=== PATIENT | female | born 1940 | race Caucasian/White ===

== ENCOUNTER 2025-05-09 00:15 | Inpatient (IN) | payer MEDICARE, SELFPAY ==
[2025-05-09 00:36] VITALS: BMI 22.4
[2025-05-09 00:38] VITALS: BP 161/86; PULSE 88; RESP 16; TEMP 36.6; O2SAT 92
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
[2025-05-09 08:00] VITALS: BP 158/107; PULSE 83; RESP 16; TEMP 36.4
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
[2025-05-09 20:00] VITALS: BP 100/60; PULSE 66; RESP 16; TEMP 36.4; O2SAT 94
[2025-05-10 07:34] LABS: Hemoglobin A1C 155.2340 umol/L; Total Hemoglobin (HGBA1C) 3609.6069 umol/L
[2025-05-10 07:43] LABS: Alanine Aminotransferase 13 U/L (0-31); Albumin Level 3.8 g/dL (3.5-5.0); Alkaline Phosphatase 72 U/L (39-117); Anion Gap 11 (12-20); Aspartate Amino Transferase 22 U/L (5-31); Blood Urea Nitrogen 21 mg/dL (9-16); Calcium 8.9 mg/dL (8.4-10.2); Carbon Dioxide 28 mmol/L (22-29); Chloride 108 mmol/L (96-108); Cholesterol 162 mg/dL (<200); Creatinine Clr Calc Pharmacy 61.6; Estimated Glomerular Filt Rate > 60; HDL Cholesterol 65 mg/dL (>40); Potassium 4.2 mmol/L (3.3-5.1); Sodium 143 mmol/L (135-145); Total Protein 6.2 g/dL (6.5-8.0); Triglycerides 83 mg/dL (<150)
[2025-05-10 08:18] LABS: Folate 9.5 ng/mL (> or = 4.0); Vitamin B12 205 pg/mL (200-900)
[2025-05-10 08:42] VITALS: BP 153/63; PULSE 83; RESP 20; TEMP 37; O2SAT 94
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
[2025-05-10 20:00] VITALS: BP 128/63; PULSE 82; RESP 16; TEMP 36.4; O2SAT 93
[2025-05-11 09:15] VITALS: BP 111/56; PULSE 74; RESP 16; TEMP 36.2; O2SAT 92
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
[2025-05-11 20:00] VITALS: BP 112/57; PULSE 72; RESP 18; TEMP 36.6; O2SAT 93
[2025-05-12 08:12] VITALS: BP 166/72; PULSE 79; RESP 16; TEMP 36.1; O2SAT 93
--- NOTE | 2025-05-12 08:43 | HO.PSYCHPN ---
Subjective Subjective Date of Service: 05/12/25 Reason For Visit: Anxiety Disorder Subjective Notes: Conditional Voluntary Healthcare Proxy: No Guardianship: No Medical Problems Affecting Mental Status: No Interim History: 85 yo feeling much better, up and showered and dressed- cooperative, nursing report looking much brighter and pt agrees- Oriented to year, place and person Medication Compliance: Yes Side effects from medications: No Attending Groups: Intermittent Review of Systems Acute medical concerns: No Medical Review of Systems: unchanged Mental Status Exam Mental Status Exam Patient Appearance: Well Grooomed and Appropriate Patient Orientation: Person, Place and Situation Level of Consciousness: Awake and Appropriate Patient Behavior: Cooperative and Good Eye Contact Mood Description: Calm Affect Description: Appropriate Patient Cognition Impaired: Yes Ability to Follow Directions: Fair Speech Pattern: Clear Hallucinations: None Delusions: Not Present Thought Process: Intact and Goal Oriented Judgement: Fair Diagnostics Vital Signs (24Hr): Vital Signs - 24 hr 05/11/25 09:15 05/11/25 20:00 05/12/25 08:12 Temperature 97.2 F 97.8 F 96.9 F Pulse Rate 74 72 79 Respiratory Rate 16 18 16 Blood Pressure 111/56 L 112/57 L 166/72 H Pulse Oximetry 92 93 93 Oxygen Delivery Method Room Air Room Air Room Air BMI result Body Mass Index 22.4 Labs 05/10/25 07:17 Medications Medications Current Medications Al Hydroxide/Mg Hydroxide (Magnesium Hydrox/Alum Hydrox 30 Ml Oral.Susp) 30 ml PO Q6H PRN PRN Reason: Heartburn/Nausea Albuterol Sulfate (Albuterol Sulfate 90 Mcg 8 Gm Inhaler) 2 puff INHALE Q4H PRN PRN Reason: sob/wheezing Atorvastatin Calcium (Atorvastatin Calcium 80 Mg Tablet) 80 mg PO BEDTIME [facility] Last Admin: 05/11/25 20:33 Dose: 80 mg Haloperidol (Haloperidol 1 Mg Tablet) 1 mg PO BID [facility] Last Admin: 05/12/25 08:11 Dose: 1 mg Lisinopril (Lisinopril 40 Mg Tablet) 40 mg PO DAILY [facility] Last Admin: 05/12/25 08:14 Dose: 40 mg Magnesium Hydroxide (Milk Of Magnesia 30 Ml Oral.Susp) 30 ml PO DAILY PRN PRN Reason: Constipation Nicotine Polacrilex (Nicotine Polacrilex 2 Mg Gum) 4 mg BUCCAL Q2H PRN PRN Reason: Nicotine Cravings Trazodone HCl (Trazodone Hcl 50 Mg Tablet) 50 mg PO BEDTIME MRX1 PRN PRN Reason: Insomnia Last Admin: 05/09/25 20:10 Dose: 50 mg Allergies Allergies Allergy/AdvReac Type Severity Reaction Status Date / Time acetaminophen (From Percocet) Allergy Nausea and Verified 05/09/25 00:26 Vomiting morphine Allergy Nausea and Verified 05/09/25 00:26 Vomiting oxycodone (From Percocet) Allergy Nausea and Verified 05/09/25 00:26 Vomiting Assessment & Plan Assessment & Plan (1) HTN (hypertension): Status: Acute Code(s): I10 - Essential (primary) hypertension (2) Major neurocognitive disorder due to another medical condition, with psychotic disturbance: Status: Acute Code(s): F02.82 - Dementia in other diseases classified elsewhere, unspecified severity, with psychotic disturbance (3) Tourette disease: Status: Acute Code(s): F95.2 - Tourette's disorder Plan Anxiety and confusion Medical workup unrevealing Admit to psych for further treatment Cognitive evaluation Hypertension/hyperlipidemia Continue lisinopril and atorvastatin History of Tourette syndrome Continue Haldol b.i.d. per home dosing Thank you for allowing me to participate in the care of this patient. Will follow as needed. Please reconsult of any acute concerns or issues arise 05/12/25 feeling improved- looking forward to wi next week Patient educated on: diagnosis and medication risk/benefits Informed Consent: understands Reason for continued inpatient stay Substantial Risk for: rapid decompensation Time Spent With Patient Time: Total time managing care of this patient today ____ minutes.
[2025-05-12 20:00] VITALS: BP 165/75; PULSE 71; RESP 18; TEMP 36.5; O2SAT 92
[2025-05-13 09:12] VITALS: BP 166/72; PULSE 93; RESP 14; TEMP 36.4; O2SAT 92
--- NOTE | 2025-05-13 12:38 | P.PNPSI_ITS ---
Subjective Subjective Date of Service: 05/13/25 Reason For Visit: Anxiety Disorder Subjective Notes: Section 12B Healthcare Proxy: No Guardianship: No Medical Problems Affecting Mental Status: Yes (neurocog decline) Interim History: 85 yo who knows her , and had call with son today- with whom she lives- Says she feels fine, denying all sys, doesn't remember why she is here- Sleep ok, energy ok - does appear bright and cooperative on unit- Medication Compliance: Yes (doesn't know what she is on for what condition small thing ) Side effects from medications: No Attending Groups: Intermittent Review of Systems Acute medical concerns: No Medical Review of Systems: unchanged Mental Status Exam Mental Status Exam Patient Appearance: Appropriate Patient Orientation: Person and Situation Level of Consciousness: Awake and Appropriate Patient Behavior: Cooperative and Good Eye Contact Mood Description: Calm Affect Description: Appropriate Patient Cognition Impaired: Yes Ability to Follow Directions: Fair Speech Pattern: Clear Hallucinations: None Delusions: Not Present Thought Process: Intact and Goal Oriented Judgement: Fair Diagnostics Vital Signs (24Hr): Vital Signs - 24 hr 05/12/25 20:00 05/13/25 09:12 05/13/25 09:12 Temperature 97.7 F 97.5 F Pulse Rate 71 93 Respiratory Rate 18 14 Blood Pressure 165/75 H 166/72 H 166/72 H Pulse Oximetry 92 92 Oxygen Delivery Method Room Air Room Air BMI result Body Mass Index 22.4 Labs 05/10/25 07:17 Medications Medications Current Medications Al Hydroxide/Mg Hydroxide (Magnesium Hydrox/Alum Hydrox 30 Ml Oral.Susp) 30 ml PO Q6H PRN PRN Reason: Heartburn/Nausea Albuterol Sulfate (Albuterol Sulfate 90 Mcg 8 Gm Inhaler) 2 puff INHALE Q4H PRN PRN Reason: sob/wheezing Atorvastatin Calcium (Atorvastatin Calcium 80 Mg Tablet) 80 mg PO BEDTIME [facility] Last Admin: 05/12/25 20:29 Dose: 80 mg Haloperidol (Haloperidol 1 Mg Tablet) 1 mg PO BID [facility] Last Admin: 05/13/25 09:12 Dose: 1 mg Lisinopril (Lisinopril 40 Mg Tablet) 40 mg PO DAILY [facility] Last Admin: 05/13/25 09:12 Dose: 40 mg Magnesium Hydroxide (Milk Of Magnesia 30 Ml Oral.Susp) 30 ml PO DAILY PRN PRN Reason: Constipation Nicotine Polacrilex (Nicotine Polacrilex 2 Mg Gum) 4 mg BUCCAL Q2H PRN PRN Reason: Nicotine Cravings Trazodone HCl (Trazodone Hcl 50 Mg Tablet) 50 mg PO BEDTIME MRX1 PRN PRN Reason: Insomnia Last Admin: 05/09/25 20:10 Dose: 50 mg Allergies Allergies Allergy/AdvReac Type Severity Reaction Status Date / Time acetaminophen (From Percocet) Allergy Nausea and Verified 05/09/25 00:26 Vomiting morphine Allergy Nausea and Verified 05/09/25 00:26 Vomiting oxycodone (From Percocet) Allergy Nausea and Verified 05/09/25 00:26 Vomiting Assessment & Plan Assessment & Plan (1) HTN (hypertension): Status: Acute Code(s): I10 - Essential (primary) hypertension (2) Major neurocognitive disorder due to another medical condition, with psychotic disturbance: Status: Acute Code(s): F02.82 - Dementia in other diseases classified elsewhere, unspecified severity, with psychotic disturbance (3) Tourette disease: Status: Acute Code(s): F95.2 - Tourette's disorder Plan Anxiety and confusion Medical workup unrevealing Admit to psych for further treatment Cognitive evaluation Hypertension/hyperlipidemia Continue lisinopril and atorvastatin History of Tourette syndrome Continue Haldol b.i.d. per home dosing Thank you for allowing me to participate in the care of this patient. Will follow as needed. Please reconsult of any acute concerns or issues arise 05/12/25 feeling improved- looking forward to dc next week 05/13 haldol seems to have helped- CTP on 12b likely to go home- though patient has no awareness of dx, meds or plan- Patient educated on: medication risk/benefits and medical condition Informed Consent: does not understand Reason for continued inpatient stay Substantial Risk for: inability to function and rapid decompensation Time Spent With Patient Time: Total time managing care of this patient today ____ minutes.
[2025-05-13 20:00] VITALS: BP 117/59; PULSE 71; RESP 16; TEMP 36.2; O2SAT 94
[2025-05-14 08:54] VITALS: BP 113/66; PULSE 75; RESP 18; TEMP 36.6; O2SAT 93
--- NOTE | 2025-05-14 09:14 | HO.PSYCHPN ---
Subjective Subjective Date of Service: 05/14/25 Reason For Visit: Anxiety Disorder Subjective Notes: Conditional Voluntary Interim History: Pt slept through the night. She does not present with over signs of psychosis or delusions. She denied SI/HI. She denies depression. No behavioral concerns. She is able to return home tomorrow. Review of Systems Review of Systems Denies any shortness of breath, chest pain, dizziness, lightheadedness, abdominal pain or discomfort, nausea vomiting or diarrhea Mental Status Exam Mental Status Exam Narrative: Appearance: wearing hospital gown, fair hygiene, in NAD, chorea like movement Behavior: cooperative Psychomotor: chorea like movement (wonder if secondary to haldol use dyskenisia, denies hx of Mattoon's) Speech: mostly clear, normal rate/rhythm/volume, spontaneous TP: some poverty of thought noted TC: not knowing why she is here Mood: better Affect: constricted, but congruent SI: denies HI: denies VH/AH: no overt signs Delusions: paranoid ideas of people stealing from her Insight/judgment: impaired x 2. memory/cog: alert, oriented to self and year, not to month nor place, nor situation. Diagnostics Vital Signs (24Hr): Vital Signs - 24 hr 05/13/25 20:00 05/14/25 08:54 Temperature 97.1 F 97.9 F Pulse Rate 71 75 Respiratory Rate 16 18 Blood Pressure 117/59 L 113/66 Pulse Oximetry 94 93 Oxygen Delivery Method Room Air Room Air BMI result Body Mass Index 22.4 Labs 05/10/25 07:17 Medications Medications Current Medications Al Hydroxide/Mg Hydroxide (Magnesium Hydrox/Alum Hydrox 30 Ml Oral.Susp) 30 ml PO Q6H PRN PRN Reason: Heartburn/Nausea Albuterol Sulfate (Albuterol Sulfate 90 Mcg 8 Gm Inhaler) 2 puff INHALE Q4H PRN PRN Reason: sob/wheezing Atorvastatin Calcium (Atorvastatin Calcium 80 Mg Tablet) 80 mg PO BEDTIME [facility] Last Admin: 05/13/25 20:43 Dose: 80 mg Haloperidol (Haloperidol 1 Mg Tablet) 1 mg PO BID [facility] Last Admin: 05/14/25 08:55 Dose: 1 mg Lisinopril (Lisinopril 40 Mg Tablet) 40 mg PO DAILY [facility] Last Admin: 05/14/25 08:55 Dose: 40 mg Magnesium Hydroxide (Milk Of Magnesia 30 Ml Oral.Susp) 30 ml PO DAILY PRN PRN Reason: Constipation Nicotine Polacrilex (Nicotine Polacrilex 2 Mg Gum) 4 mg BUCCAL Q2H PRN PRN Reason: Nicotine Cravings Trazodone HCl (Trazodone Hcl 50 Mg Tablet) 50 mg PO BEDTIME MRX1 PRN PRN Reason: Insomnia Last Admin: 05/09/25 20:10 Dose: 50 mg Allergies Allergies Allergy/AdvReac Type Severity Reaction Status Date / Time acetaminophen (From Percocet) Allergy Nausea and Verified 05/09/25 00:26 Vomiting morphine Allergy Nausea and Verified 05/09/25 00:26 Vomiting oxycodone (From Percocet) Allergy Nausea and Verified 05/09/25 00:26 Vomiting Assessment & Plan Assessment & Plan (1) Major neurocognitive disorder due to another medical condition, with psychotic disturbance: Status: Acute Code(s): F02.82 - Dementia in other diseases classified elsewhere, unspecified severity, with psychotic disturbance (2) HTN (hypertension): Status: Acute Code(s): I10 - Essential (primary) hypertension (3) Tourette disease: Status: Acute Code(s): F95.2 - Tourette's disorder Plan Anxiety and confusion Medical workup unrevealing Admit to psych for further treatment Cognitive evaluation Hypertension/hyperlipidemia Continue lisinopril and atorvastatin History of Tourette syndrome Continue Haldol b.i.d. per home dosing Thank you for allowing me to participate in the care of this patient. Will follow as needed. Please reconsult of any acute concerns or issues arise 05/12/25 feeling improved- looking forward to dc next week 05/13 haldol seems to have helped- CTP on 12b likely to go home- though patient has no awareness of dx, meds or plan- 05/14 continue tx. plan for dc on 05/15/2025 Reason for continued inpatient stay Substantial Risk for: inability to function Time Spent With Patient Time: Total time managing care of this patient today ____ minutes.
[2025-05-14 14:43] LABS: Vitamin D 25-OH, D2 <4 ng/mL; Vitamin D 25-OH, D3 13 ng/mL; Vitamin D 25-OH, Total 13 ng/mL (30-100)
[2025-05-14 20:12] VITALS: BP 135/61; PULSE 83; RESP 16; TEMP 37.1; O2SAT 92
[2025-05-15 08:00] VITALS: BP 149/66; PULSE 63; RESP 18; TEMP 36.4; O2SAT 94
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
== END 2025-05-15 14:19 | disposition home or self-care (01) | DRG 884 ==
PROVIDERS: Registered Nurse; Social Worker; Admitting Provider Psychiatry & Neurology Psychiatry; PCP Internal Medicine; Visit Provider Psychiatry & Neurology Psychiatry
DX: F03.90 Unspecified dementia, unspecified severity, without behavioral disturbance, psychotic disturbance, mood disturbance, and anxiety (principal); I10 Essential (primary) hypertension; E78.5 Hyperlipidemia, unspecified; F95.2 Tourette's disorder; F41.9 Anxiety disorder, unspecified; Z87.891 Personal history of nicotine dependence; Z79.899 Other long term (current) drug therapy
CPT/HCPCS: 36415; 80053; 80061; 82306; 82607; 82746; 83036; 84443

== ENCOUNTER → 2025-05-09 00:15 | Outpatient (BNV) | payer MEDICARE, SELFPAY | PROVIDERS: Admitting Provider Psychiatry & Neurology Psychiatry; PCP Internal Medicine; Visit Provider Nurse Practitioner Family | DX: I10 Essential (primary) hypertension (principal) | CPT/HCPCS: 99221 ==

== ENCOUNTER → 2025-05-09 00:15 | Outpatient (BNV) | payer MEDICARE, SELFPAY | PROVIDERS: Admitting Provider Psychiatry & Neurology Psychiatry; PCP Internal Medicine; Visit Provider Social Worker | DX: F03.92 Unspecified dementia, unspecified severity, with psychotic disturbance (principal); F95.2 Tourette's disorder; I10 Essential (primary) hypertension | CPT/HCPCS: 90792; 99231; 99232; 99239 ==